=== PATIENT | female | born 1955 | race Caucasian/White ===

== ENCOUNTER 2021-10-07 06:52 | Day surgery (SDC) | payer MEDICARE ==
[2021-10-07] MEDS ORDERED: Depo-Medrol 40 MG/ML IM ONE (06:53)
[2021-10-07] MEDS ORDERED: Sodium Chloride 0.9(Preservative Free) 10 ML IJ ONE (06:53)
[2021-10-07] MEDS ORDERED: DIPRIVAN 200 MG/20 ML IV ONE (08:41)
[2021-10-07] MEDS ORDERED: Lactated Ringers 1,000 ML IV ONE ×2 (08:50→09:13)
--- NOTE | 2021-10-07 10:48 | XRAY ---
Indication: Caudal SHAD. Intraoperative fluoroscopy provided for 49 seconds. 2 digital spot image submitted for interpretation demonstrates posterior caudal needle tip projecting over mid sacrum. Small amount of contrast injected for needle tip placement. Correlate with intraoperative findings/report.
--- NOTE | 2021-10-07 11:02 | XRAY ---
49 seconds of fluoroscopy was used in surgery for a caudal SHAD.
== END 2021-10-07 08:58 | disposition home or self-care (01) ==
LOC: SDC-PAIN 06:52
PROVIDERS: ATTEND Psychiatry & Neurology Pain Medicine
DX: M54.16 Radiculopathy, lumbar region (principal); E11.9 Type 2 diabetes mellitus without complications; Z79.899 Other long term (current) drug therapy
CPT/HCPCS: 62323; 72220; 77003; 82947; J1030; J2704; Q9966